=== PATIENT | male | born 1990 | race American Indian/Alaskan Native ===

== ENCOUNTER 2020-11-07 07:52 | Outpatient (REF) | payer MEDICAID, SELFPAY | END 2020-11-07 07:53 | disposition home or self-care (01) | LOC: HO.LAB 07:52 | PROVIDERS: Visit Provider Internal Medicine | DX: Z20.822 Contact with and (suspected) exposure to COVID-19 (principal) | CPT/HCPCS: C9803; U0003; U0005 ==

== ENCOUNTER 2023-07-20 18:03 | Inpatient (IN) | payer OTHER, SELFPAY ==
[2023-07-20 18:13] VITALS: BP 136/106; BP 162/88; PULSE 110; PULSE 127; RESP 20; TEMP 36.9; O2SAT 96; O2SAT 99; BMI 25.1
[2023-07-20 18:19] VITALS: PULSE 95; RESP 16; O2SAT 99
--- NOTE | 2023-07-20 18:21 | PC.NURSE ---
Patient comes to the ED today by ambulance, escorted by PD on a section 12. Patient reports that he jumped off a bridge to go for a swim and someone called police on him. When police arrived apparently one of the officers heard him say that he wants to kill himself, patient denies this at this time. Patient changed over without issue, aware of plan of care at this time
--- NOTE | 2023-07-20 18:39 | ED_ITS ---
HPI - Psych General Chief Complaint: Psychiatric Symptoms Stated Complaint: witnessed jumping off bridge 20 ft into water Time Seen by Provider: 07/20/23 18:17 Source: patient and EMS Mode of arrival: EMS Limitations: no limitations History of Present Illness HPI Narrative: Patient is a 32-year-old male who presents to the emergency department via EMS with police department escorting, patient is on a section 12. Patient was reportedly seen by bystanders to be jumping off the [facility] bridge which is local, an approximate 20 ft jump. Patient reports that he had a rough day, he decided to park his car and jump off the bridge to go for a swim. He reports ?I am kind of a different Gy, when they explained to me afterwards I can see that they would be worried?. His section 12 from PD does state that he told police his ?life sucks? and that he wanted to kill himself. Patient adamantly denies that he did not make this statement, he denies having made any suicidal statements, and denies any suicidal ideations. Nursing staff has advised me that his girlfriend was either present or somehow had reported to EMS/PD that he has a history of self-harm. However, she is adamant that she wants no part of her mentioning this to ever be disclosed to him. When asked he reports that he lives alone and denies having any friend family locally in the area. He denies any drug or alcohol usage. He does report a history of depression as a child, but states he has never had any suicidal attempts, it is not taking any medications for depression. At this time he denies any physical concerns. He states at this time that he would like to be discharged home, he is amenable to staying for a brief time while we ?sort things out?. He reports that he needs to get home within the next couple of hours as he has work early in the morning for [employer] in [place], [place] Related Data Home Medications ?Medication ?Instructions ?Recorded ?Confirmed No Known Home Meds 07/20/23 07/20/23 Allergies Allergy/AdvReac Type Severity Reaction Status Date / Time No Known Allergies Allergy Verified 07/20/23 18:15 Review of Systems 2 Review of Systems: Yes all other systems are reviewed and are negative PMFSH Past Medical History Attestation statement: The following information was validated with the patient. Source: old records reviewed Social History Social History Smoked in Last 30 Days: Yes Substance Use Type: Marijuana Substance Use Frequency: Daily Advance Directives: No Advance Directives Information Provided: No Physical Exam 2 Vital Signs: Vital Signs: Last Vital Signs Temp 98.7 F 07/20/23 23:32 Pulse 93 07/20/23 23:32 Resp 18 07/20/23 23:32 BP 136/89 07/20/23 23:32 Pulse Ox 99 07/20/23 23:32 O2 Del Method Room Air 07/20/23 23:32 BMI result Body Mass Index 25.1 Appearance: Alert.?Oriented to person, place and time. No acute distress.?Normal affect. Eyes: Pupils equal, round and reactive to light.? ENT: Pharynx normal.?? Neck: Normal inspection.? Neck supple.?? CVS: Heart sounds normal. Normal heart rate and rhythm.? Pulses normal.?? Respiratory: No respiratory distress.? Lung sounds clear to auscultation bilaterally?? Abdomen: Soft and non-tender. Normoactive bowel sounds. No pulsatile mass.?? Skin: Skin warm and dry.? Normal skin color.? Normal skin turgor.?? Extremities: No lower extremity edema.? No calf ttp? Neuro: Moves all extremities spontaneously. Sensation intact bilaterally. CN II- XII intact. No focal neuro deficits. Ambulates with normal steady gait. Medications Administered Discontinued Medications Generic Name Dose Route Start Last Admin Trade Name Freq PRN Reason Stop Dose Admin Melatonin 9 mg 07/20/23 23:35 07/20/23 23:42 Melatonin 3 Mg Tablet PO 07/20/23 23:36 9 mg ONCE STA Administration Medical Decision Making Medical Decision Making MDM Narrative: Patient is a 32-year-old male with history of depression as a child presenting to the emergency department on a section 12 via EMS/police Department after having jumped off a bridge. He is adamant that this was not a suicide attempt, he does admit that he was having a bad day, and denies ever having mentioned to police department that he had any suicidal ideations or wanting to kill himself. He is speaking clear full sentences, he is alert and oriented x3. He denies any physical complaints and his physical examination is benign. There are no focal neurological deficits, GCS is 15, unlikely to have ICH, SDH, fracture, no cervical thoracic or lumbar spine tenderness, step-offs, deformities to suggest fracture subluxation, lung sounds are clear bilaterally, no respiratory distress, lower suspicion for pneumothorax, significant pulmonary contusion, pneumothorax, rib fracture, no abdominal or flank tenderness upon palpation, soft and nontender, unlikely to have acute blunt injury. At this time will continue to monitor, no current indication for radiographic imaging. And to obtain basic labs for clearance, toxicology testing, and refer to care team Differential Diagnosis Differential Diagnoses: The differential diagnosis associated with the presentation includes (See narrative above) Admission/Observation Consideration of admission/observation: Escalation of care including admission/observation considered (Referral to care team for further evaluation, determination as to whether inpatient psychiatric services are required at this time) Evaluated by care team, section 12 inpatient bed search Consult Healthcare Provider Management of the patient was discussed with: Behavioral Health Provider (CARE team) Lab Data MDM Lab Attestation statement: I reviewed the patient's lab results. CBC reveals a mild leukocytosis, suspect reactive in nature, no acute infectious symptoms, no anemia. No electrolyte derangement. No BONNIE. Normal transaminases. Urinalysis without evidence of infection. Toxicology positive for marijuana, detectable alcohol level of 203. 07/20/23 18:53 07/20/23 18:53 Labs: Lab Results 07/20/23 07/20/23 Range/Units 18:37 18:53 WBC 12.7 H (4.8-10.8) X10*3/uL RBC 5.14 (4.60-5.80) X10*6/uL Hgb 16.2 (14.0-18.0) g/dl Hct 46.8 (42.0-52.0) % MCV 91.1 (80.0-98.0) fL MCH 31.5 (27.0-33.0) pg MCHC 34.6 (31.0-36.0) g/dl RDW 12.5 (11.0-16.0) % Plt Count 393 (160-400) X10*3/uL MPV 8.7 L (9.4-12.4) fL Immature Gran % (Auto) 0.6 H (0.0-0.4) % Neut % (Auto) 74.4 H (45-73) % Lymph % (Auto) 15.7 L (20-40) % [place] % (Auto) 8.3 (2-11) % Eos % (Auto) 0.1 (0-4) % Baso % (Auto) 0.9 (0-2) % Lymph # (Auto) 2.0 (1.2-4.9) X10*3/uL [place] # (Auto) 1.1 (0.1-1.2) X10*3/uL Eos # (Auto) 0.0 (0.0-0.4) X10*3/uL Baso # (Auto) 0.1 (0.0-0.2) X10*3/uL Abs Immat Gran (auto) 0.07 H (0.00-0.03) X10*3/uL Absolute Neuts (auto) 9.5 H (2.0-8.3) x10*3/uL Absolute Nucleated RBC 0.000 (0.0-0.012) X10*3/uL Nucleated RBC % (auto) 0.0 (0.0-0.2) /100WBC Sodium 142 (135-145) mmol/L Potassium 3.5 (3.3-5.1) mmol/L Chloride 105 (96-108) mmol/L Carbon Dioxide 22 (22-29) mmol/L Anion Gap 19 (12-20) BUN 16 (9-16) mg/dL Creatinine 1.25 (0.5-1.4) mg/dL Estim Creat Clear Calc 86.4 Estimated GFR > 60 Random Glucose 92 (60-115) mg/dL Calcium 9.9 (8.4-10.2) mg/dL Total Bilirubin 1.0 (0.0-1.0) mg/dL AST 26 (5-37) U/L ALT 24 (0-40) U/L Alkaline Phosphatase 77 (39-117) U/L Total Protein 8.7 H (6.5-8.0) g/dL Albumin 5.0 (3.5-5.0) g/dL Urine Color Yellow Urine Appearance Clear Urine pH 7.0 (5.0-9.0) Ur Specific [place] <= 1.005 (1.005-1.025) Urine Protein 100 (2+) H (Neg-Trace) mg/dL Urine Glucose (UA) Negative (Negative) mg/dL Urine Ketones Negative (Negative) mg/dL Urine Blood Small (1+) H (Negative) Urine Nitrite Negative (Negative) Ur Leukocyte Esterase Negative (Negative) Urine RBC 0-2 (0-2) /HPF Urine WBC 0-5 (0-5) /HPF Ur Squamous Epith Cells 0-2 (0-2) /HPF Urine Bacteria None Seen (None Seen) Hyaline Casts 0-2 (0-2) /LPF Urine Opiates Screen Not Detected (Not Detect) Ur Buprenorphine Scrn Not Detected (Not Detect) ng/mL Ur Oxycodone Screen Not Detected (Not Detect) ng/mL Urine Methadone Screen Not Detected (Not Detect) ng/mL Urine Fentanyl Screen Not Detected (Not Detect) Ur Barbiturates Screen Not Detected (Not Detect) Ur Phencyclidine Scrn Not Detected (Not Detect) Ur Amphetamines Screen Not Detected (Not Detect) U Benzodiazepines Scrn Not Detected (Not Detect) Urine Cocaine Screen Not Detected (Not Detect) U Marijuana (THC) Screen POSITIVE H (Not Detect) Ethyl Alcohol 203 mg/dL Independent Historian Clinical information obtained from an independent historian. History obtained from or confirmed by: EMS Discharge Plan Discharge Clinical Impression: Depression, Bipolar disorder Patient Disposition: Still a Patient Prescriptions: No Action No Known Home Meds Interventions: Graham-Suicide Risk Severity Scale Last Done: 07/20/23 18:19 Print Language: Singaporean
[2023-07-20 18:59] LABS: Appearance Urine Clear; Color Urine Yellow; Glucose Urine UA Negative (Negative); Leukocyte Esterase Urine Negative (Negative); Nitrite Urine Negative (Negative); Specific Gravity - Urine <= 1.005 (1.005-1.025); UMIC TRIGGER UACC YES; Urine Blood Small (1+) (Negative); Urine Ketones Negative (Negative); Urine Protein 100 (2+) mg/dL (Neg-Trace)
[2023-07-20 18:59] LABS: MANUAL DIFF FLAG NO
[2023-07-20 19:03] LABS: Basophils Absolute Auto 0.1 X10*3/uL (0.0-0.2); Basophils Percent Auto 0.9 % (0-2); Eosinophils Percent Auto 0.1 % (0-4); Hematocrit 46.8 % (42.0-52.0); Hemoglobin 16.2 g/dl (14.0-18.0); Imm Gran Abs Auto 0.07 X10*3/uL (0.00-0.03); Imm Gran Pct Auto 0.6 % (0.0-0.4); Lymphocytes Percent Auto 15.7 % (20-40); Mean Corpuscular HGB Conc 34.6 g/dl (31.0-36.0); Mean Corpuscular Hemoglobin 31.5 pg (27.0-33.0); Mean Corpuscular Volume 91.1 fL (80.0-98.0); Mean Platelet Volume 8.7 fL (9.4-12.4); Monocytes Absolute Auto 1.1 X10*3/uL (0.1-1.2); Monocytes Percent Auto 8.3 % (2-11); Neutrophils Absolute Auto 9.5 x10*3/uL (2.0-8.3); Neutrophils Percent Auto 74.4 % (45-73); Platelet Count 393 X10*3/uL (160-400); Red Blood Count 5.14 X10*6/uL (4.60-5.80); Red Cell Distribution Width 12.5 % (11.0-16.0); White Blood Count 12.7 X10*3/uL (4.8-10.8)
[2023-07-20 19:16] LABS: Amphetamine Screen Urine Not Detected (Not Detect); Barbiturates, Urine Not Detected (Not Detect); Benzodiazepines Screen Urine Not Detected (Not Detect); Buprenorphine Scr Not Detected (Not Detect); Cannabinoid Screen Urine POSITIVE (Not Detect); Cocaine Screen Urine Not Detected (Not Detect); Fentanyl, urine Not Detected (Not Detect); Methadone Screen, Urine Not Detected (Not Detect); Opiate Screen Urine Not Detected (Not Detect); Oxycodone Screen Urine Not Detected (Not Detect); Phencyclidine Screen Urine Not Detected (Not Detect)
[2023-07-20 19:18] LABS: Bacteria Urine None Seen (None Seen); Hyaline Casts Urine 0-2 /LPF (0-2); RBC Urine 0-2 /HPF (0-2); Squamous Epithelial Cell Urine 0-2 /HPF (0-2); WBC Urine 0-5 /HPF (0-5)
[2023-07-20 19:21] LABS: Alanine Aminotransferase 24 U/L (0-40); Alkaline Phosphatase 77 U/L (39-117); Anion Gap 19 (12-20); Aspartate Amino Transferase 26 U/L (5-37); Blood Urea Nitrogen 16 mg/dL (9-16); Calcium 9.9 mg/dL (8.4-10.2); Carbon Dioxide 22 mmol/L (22-29); Chloride 105 mmol/L (96-108); Creatinine Clr Calc Pharmacy 86.4; Estimated Glomerular Filt Rate > 60; Ethanol 203 mg/dL; Glucose Random 92 mg/dL (60-115); Potassium 3.5 mmol/L (3.3-5.1); Sodium 142 mmol/L (135-145); Total Protein 8.7 g/dL (6.5-8.0)
--- NOTE | 2023-07-20 19:50 | MHC.EDTECH ---
house/car keys given to pts girlfriend.
--- NOTE | 2023-07-20 19:53 | PC.NURSE ---
patient gives instructions to gf? to leaf size picker his vehicle. patient just continues to makes antagonistic statements about judgement of staff as if antagonizing personnel will promote our dc of patient . patients gf to receive patients vehicle keys.
--- NOTE | 2023-07-20 20:01 | PC.NURSE ---
patient frequently going back to phone to make phone calls, not reaching anyone.
--- NOTE | 2023-07-20 20:28 | MHC.CARE ---
CARE team contacted [facility] crisis and co-response, [facility] crisis, [facility] and [facility] crisis teams who report no prior contact with Pt. [facility] [facility] crisis reports they have had prior contact with Pt 2x in 2016, but had minimal information about risk hx. BILINGUAL SPEECH LANGUAGE PATHOLOGIST reports that Pt had an unintentional opioid overdose with no SI on one occasion and on another occasion he had been arrested and made SI statement then denied it and stayed in police custody. Today, [facility] report that officers witnessed Pt jump off the bridge which has a 35-40 foot drop and they reached him as he was coming out of the water saying he wanted to kill himself. Then he said he was just swimming... but he was fully clothed. [facility] also reports that Pt's girlfriend told officers that Pt has a hx of self-harm and SI attempts.
[2023-07-20 23:32] VITALS: BP 136/89; PULSE 93; RESP 18; TEMP 37.1; O2SAT 99
[2023-07-20] MEDS: Melatonin 3 MG TABLET 9 MG PO (23:42)
--- NOTE | 2023-07-21 | ECG_ITS ---
Test Reason : Hypertension Blood Pressure : / mmHG Vent. Rate : 070 BPM Atrial Rate : 070 BPM P-R Int : 144 ms QRS Dur : 112 ms QT Int : 384 ms P-R-T Axes : -10 062 019 degrees QTc Int : 414 ms Normal sinus rhythm Normal ECG No previous ECGs available Referred By: Kandice Ricardo Electronically Signed By:FRIEDA RIVER
--- NOTE | 2023-07-21 07:20 | PC.NURSE ---
PT IS SLEEPING RESP EVEN AND UNLABORED. WILL CONTINUE TO MONITOR.
--- NOTE | 2023-07-21 08:09 | PC.NURSE ---
PT IS IN THE HALLWAY ON THE COMMUNITY PHONE.
[2023-07-21 08:17] VITALS: BP 152/79; PULSE 86; RESP 18; TEMP 36.9; O2SAT 97
--- NOTE | 2023-07-21 09:00 | PC.NURSE ---
PT A/O X 4 NO SOB/MALINA NOTED SPEAKS IN FULL SENTENCES. PT DENIES ANY PAIN/DISC/SI/HI/HALLUCINATION. PT AWARE OF PLAN OF CARE. WILL CONTINUE TO MONITOR.
--- NOTE | 2023-07-21 17:00 | PC.NURSE ---
this RN resumed care of pt at 1500. pt resting comfortably in no apparent distress while watching tv. pt denies SI/HI. denies pain. no sob/wob noted. respirations even and unlabored. plan of care ongoing.
--- NOTE | 2023-07-21 18:02 | PC.NURSE ---
report given to AMBER Tavares on M3 at this time.
--- NOTE | 2023-07-21 18:06 | PC.NURSE ---
pt being transported upstairs w/ security and RN from at this time.
[2023-07-21 18:13] VITALS: BP 172/95; PULSE 76; RESP 16; TEMP 36.8; O2SAT 99
[2023-07-21 19:08] VITALS: BMI 27.8
[2023-07-21 19:20] VITALS: BP 152/79; PULSE 98; O2SAT 99
[2023-07-21 19:25] VITALS: BP 153/90; PULSE 95; RESP 18; TEMP 36.2; O2SAT 100
--- NOTE | 2023-07-21 19:39 | HO.EVEPSY2_ITS ---
Event Note Date of Service: 07/21/23 Psych On-Call Event Note: recieved text from [facility] RN re pts high BP 172/95. pt reporting he feels anxious. RN also sent pictures of bruises on pts face, arms, and hands. Reviewd pt chart. Pt had BAL 230 upon ED admit. Started in CIWA scale and ativan protocol. ativan 1mg now ordered. Hospitlaist consult ordered for BP and bruising. EkG ordered. EKG came back with wide QRS and PVC and acute ND/STEMI. rapid rsponse called. repeat EKG shows normal sinus and pt in no acute distress. Medically cleared by rapid response team; t/c to Dr mcgraw medical claims processor. t/c to unit discussed with RN. Contact hospitalist orthodontic treatment coordinator Luke Ricardo who saw patient and will see tomorrow for BP if remains high Time Spent With Patient Time: Total time managing care of this patient today ____ minutes.
--- NOTE | 2023-07-21 20:11 | PM.EVENT ---
Event Note Date of Service: 07/21/23 Event Note: 7:20 PM - Rapid response was activated for abnormal ECG. Patient denied chest pain, shortness of breath or palpations. Denied any medical hx and takes no meds. VS remarkable for hypertension (152/79). Cardiopulmonary exam is unremarkable. ECG evaluated and noted to be very bad quality and unreadable. Repeated ECG is completely normal. No further testing needed as this point. Time Spent With Patient Time: Total time managing care of this patient today ____ minutes.
[2023-07-21] MEDS: Melatonin 3 MG TABLET 9 MG PO (21:14)
[2023-07-21 21:40] LABS: Glucose, Whole Blood 153 mg/dL (60-115)
[2023-07-21] MEDS: LORazepam 1 MG TABLET PO (22:05)
--- NOTE | 2023-07-21 22:28 | PM.EVENT ---
Event Note Date of Service: 07/21/23 Event Note: Patient is a 32-year-old male with no significant PMH not on home medications who was seen for evaluation leg and arm bruising and hypertension. Patient was admitted to [facility] psychiatry unit after reported SI attempt by jumping off a bridge. Patient states he was attempting to ?go for a swim? and denies SI. Patient denies any acute medical complaints at this time. Denies chest pain/pressure, palpitations. No shortness of breath. Denies fever, chills, nausea, vomiting, abdominal pain. Denies musculoskeletal pain to upper or lower extremities. Physical exam reveals minor bruising and some superficial lacerations to upper and lower extremities. Patient seen to be moving all extremities spontaneously without reduced ROM. Seen ambulating without difficulty or ataxia. No further indication for additional workup or imaging indicated right now for lacerations/bruising. Patient has been noted to be hypertensive up to 172/95. Will continue to monitor patient's BP and start on antihypertensives tomorrow if BP continues to be elevated. Time Spent With Patient Time: Total time managing care of this patient today ____ minutes.
--- NOTE | 2023-07-22 00:19 | PC.ADMIT ---
Patient is a 32 year old male admitted to [facility] on conditional CV from [facility] via EMS for suicidally and alcohol abuse at 1810 .Prior to admission , patient was seen by bystanders attempting to jump off the [place] bridge . Derrell denies that he was making any suicidal gestures , was attempting to go for a swim .BAL of .205 obtained in ER upon arrival .Derrell presents alert/orient in all spheres thought process is intact/coherent /linear , no evidence of overt psychosis No evidence of medical issues demeanor is cooperative during admission processes . Derrell repeated to T/W I'm not suicidal , yes I have stress with my job and I had a beer and 3 nips yesterday I maybe drink 2-3 times a month, Tox. screen obtained in ER was positive for THC Adamantly denies having thoughts to harm self or others he admitted telling police ' my life sucks Reports living alone and having strong family support .Derrell reports no prior psychiatric hospitalization , no prior psychiatric medications or out patient providers .Cooperative with admission process all forms signs treatment plan initiated., contracts for safety .Provider early childhood education specialist Kaleigh Harris notified of admission and orders obtained . Placed on 15 minute safety checks , CIWA q 4 hours
--- NOTE | 2023-07-22 00:53 | PC.NURSE ---
At 19;24 EKG obtained with abnormal results Princess Harris notified Rapid response called . Repeat EKG obtained =NSR ,MJY=198 . VS. 97.1-153/90-95- 18-O2 Sats 100% on R.A.. Patient in no apparent distress , Patient cleared by Hospitalist.
[2023-07-22 07:40] VITALS: BP 136/66; PULSE 83; RESP 16; TEMP 36.6; O2SAT 99
--- NOTE | 2023-07-22 08:52 | HO.PSYADMNOT ---
HPI Date of Service: 07/22/23 Chief Complaint: SI Sources of Information: patient interviewed, chart reviewed and crisis/core team assessment reviewed HPI Subjective Notes: Smart Warning, Conditional Voluntary and 3 Day Narrative: Patient is a 32 year old male with hx of depression and PTSD who was brought into ER d/t jumping [facility] the [facility] while intoxicated. Per crisis report, pt was brought into ER via ambulance on Section 12 by [place] PD d/t [facility]. [place] [facility] Police reported, pt stated he wanted to kill himself and that his life sucks . Pt denied making those statement when he arrived to ER. Pt's BAL was 205. Pt's ex-girlfriend told police pt has a hx of self harm and prior suicide attempts. Ex-girlfriend reported that after an argument with her over seeing someone new during their break up, they found out pt jumped off a bridge . During admission assessment, pt presents alert and oriented, calm and cooperative. Pt reports feeling fine ; pt stated, I jumped off the bridge into the water. I told the police I was swimming and they thought I wanted to kill myself. I didn't know the bridge I jumped off was shallow. I usually jump off the [place] bridge to go swimming . When asked if he has a hx of SA/SIB; pt stated, I only cut when I was 17 but I haven't done anything since then. I don't know why my ex would say that. I guess she thought I was trying to kill myself. I had a long day at work and had some beers. We had an argument because there is a man living with her and she's telling me she loves me . Pt denies any substance use; he reports drinking socially and smoking marijuana. He denies any current outpatient psychiatric providers but is interested in a referral to a therapist. When discussing medications; pt stated, I feel stable and don't feel like I need any medications. I go to work and the gym then go home . Pt reports he sleeps well at night. denies any other impulsive behavior. pt denies SI/HI/VH/AH. Past Psychiatric History: Pt reports hx of cutting at age 17 and taking Prozac for a few months . Pt denies any current outpatient psychiatric providers. Pt reports this is his first inpatient psychiatric hospitalization. 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 Substance History: pt reports drinking socially and smoking marijauna. Trauma History: yes Diagnostics Vital Signs (24Hr): Vital Signs - 24 hr 07/21/23 18:13 07/21/23 19:20 07/21/23 19:25 Temperature 98.3 F 97.1 F Pulse Rate 76 98 95 Respiratory Rate 16 18 Blood Pressure 172/95 H 152/79 H 153/90 H Pulse Oximetry 99 99 100 Oxygen Delivery Method Room Air Room Air Room Air 07/22/23 07:40 Temperature 97.8 F Pulse Rate 83 Respiratory Rate 16 Blood Pressure 136/66 Pulse Oximetry 99 Oxygen Delivery Method Room Air BMI result Body Mass Index 27.8 Labs 07/20/23 18:53 07/20/23 18:53 Labs: Laboratory Results - last 48 hr 07/20/23 07/20/23 07/21/23 18:37 18:53 19:23 WBC 12.7 H RBC 5.14 Hgb 16.2 Hct 46.8 MCV 91.1 MCH 31.5 MCHC 34.6 RDW 12.5 Plt Count 393 MPV 8.7 L Immature Gran % (Auto) 0.6 H Neut % (Auto) 74.4 H Lymph % (Auto) 15.7 L [place] % (Auto) 8.3 Eos % (Auto) 0.1 Baso % (Auto) 0.9 Lymph # (Auto) 2.0 [place] # (Auto) 1.1 Eos # (Auto) 0.0 Baso # (Auto) 0.1 Abs Immat Gran (auto) 0.07 H Absolute Neuts (auto) 9.5 H Absolute Nucleated RBC 0.000 Nucleated RBC % (auto) 0.0 Sodium 142 Potassium 3.5 Chloride 105 Carbon Dioxide 22 Anion Gap 19 BUN 16 Creatinine 1.25 Estim Creat Clear Calc 86.4 Estimated GFR > 60 POC Glucose 153 H Random Glucose 92 Calcium 9.9 Total Bilirubin 1.0 AST 26 ALT 24 Alkaline Phosphatase 77 Total Protein 8.7 H Albumin 5.0 Urine Color Yellow Urine Appearance Clear Urine pH 7.0 Ur Specific [place] <= 1.005 Urine Protein 100 (2+) H Urine Glucose (UA) Negative Urine Ketones Negative Urine Blood Small (1+) H Urine Nitrite Negative Ur Leukocyte Esterase Negative Urine RBC 0-2 Urine WBC 0-5 Ur Squamous Epith Cells 0-2 Urine Bacteria None Seen Hyaline Casts 0-2 Urine Opiates Screen Not Detected Ur Buprenorphine Scrn Not Detected Ur Oxycodone Screen Not Detected Urine Methadone Screen Not Detected Urine Fentanyl Screen Not Detected Ur Barbiturates Screen Not Detected Ur Phencyclidine Scrn Not Detected Ur Amphetamines Screen Not Detected U Benzodiazepines Scrn Not Detected Urine Cocaine Screen Not Detected U Marijuana (THC) Screen POSITIVE H Ethyl Alcohol 203 Meds/Allergies Meds Home Medications ?Medication ?Instructions ?Recorded ?Confirmed ?Type No Known Home Meds 07/20/23 07/20/23 History Allergies Allergies Allergy/AdvReac Type Severity Reaction Status Date / Time No Known Allergies Allergy Verified 07/20/23 18:15 Mental Status Exam Mental Status Exam Narrative: Pt is alert and oriented; behavior is cooperative, friendly and calm; dressed in casual attire; mood is described as good ; eye contact appropriate; Speech is normal rate, volume and prosody and not pressured; thought process is organized and goal directed; Thought content is on discharge; otherwise pertinent to relevant topics and without any delusional content, paranoid ideations or grandiosity; denies SI/HI/VH/AH. Assessment & Plan Assessment & Plan (1) Depression: Status: Acute Code(s): F32.A - Depression, unspecified (2) PTSD (post-traumatic stress disorder): Status: Acute Code(s): F43.10 - Post-traumatic stress disorder, unspecified Plan Patient is a 32 year old male with hx of depression and PTSD who was brought into ER d/t jumping off the [facility] while intoxicated. Plan: / day notice 15 minute safety checks CIWA referral to outpatient therapist obtain collateral discharge planning Patient educated on: diagnosis, medication risk/benefits, substance abuse and therapeutic strategies Informed Consent: understands Reason for continued inpatient stay Substantial Risk for: med/psych decompensation Statement Statement: I have reviewed the history and physical and performed a pertinent examination on my patient. No changes have occurred unless specified. If the History and Physical was not performed prior to admission, the Hospitalist's service will be consulted for completing the admission physical. Time Spent With Patient Time: Total time managing care of this patient today _60___ minutes.
[2023-07-22 09:13] LABS: Cholesterol 184 mg/dL (<200); HDL Cholesterol 41 mg/dL (>40); LDL Cholesterol Calculated 113 mg/dL (<100); Triglycerides 154 mg/dL (<150)
[2023-07-22 09:21] LABS: Estimated Average Glucose 111 mg/dL; Hemoglobin A1c % 5.5 % (<6.0)
[2023-07-22 09:27] LABS: Free T4 (Free Thyroxine) 1.01 ng/dL (0.71-1.85); Thyroid Stimulating Hormone 1.23 uIU/mL (0.32-4.0)
[2023-07-22 10:54] LABS: Folate 9.1 ng/mL (> or = 4.0); Vitamin B12 456 pg/mL (200-900)
[2023-07-22 20:00] VITALS: BP 143/79; PULSE 82; RESP 16; TEMP 37.1; O2SAT 96
[2023-07-22] MEDS: Melatonin 3 MG TABLET 9 MG PO (21:36)
[2023-07-23 07:48] VITALS: BP 150/76; PULSE 70; RESP 16; TEMP 36.4; O2SAT 100
--- NOTE | 2023-07-23 10:03 | HO.PSYCHPN ---
Subjective Subjective Date of Service: 07/23/23 Reason For Visit: SI Interim History: met with patient. Discussed with Nursing. Overall doing much better. No evidence of alcohol withdrawal and did discontinue CIWA. Reports feeling positive. Mood significantly improved. Sleep energy and appetite good. Feels that therapy is what is going to help him most and hopeful this can be in person. Still feels medications are not needed and doing okay without same. Also looking forward to changing his job from the [employer] to something different due to a negative work environment. Side effects from medications: No Attending Groups: Yes Review of Systems Acute medical concerns: No Review of Systems Review of Systems Yes all other systems are reviewed and are negative Mental Status Exam Mental Status Exam Narrative: Pleasant. Engaged. Hospital clothing in good hygiene. Engaging well with in group and milieu. Euthymic. No SI. No HI. No agitation or psychosis. Insight and judgment good Diagnostics Vital Signs (24Hr): Vital Signs - 24 hr 07/22/23 20:00 07/23/23 07:48 Temperature 98.7 F 97.5 F Pulse Rate 82 70 Respiratory Rate 16 16 Blood Pressure 143/79 H 150/76 H Pulse Oximetry 96 100 Oxygen Delivery Method Room Air Room Air BMI result Body Mass Index 27.8 Labs 07/20/23 18:53 07/20/23 18:53 Labs: Laboratory Results - last 48 hr 07/21/23 07/22/23 19:23 08:39 POC Glucose 153 H Estimat Average Glucose 111 Hemoglobin A1c % 5.5 Triglycerides 154 H Cholesterol 184 LDL Cholesterol, Calc 113 H HDL Cholesterol 41 Vitamin B12 456 Folate 9.1 TSH 1.23 Free T4 1.01 Medications Medications Current Medications Acetaminophen (Acetaminophen 325 Mg Tablet) 650 mg PO Q6H PRN PRN Reason: Headache/Pain Mild Scale (1-3) Al Hydroxide/Mg Hydroxide (Magnesium Hydrox/Alum Hydrox 30 Ml Oral.Susp) 30 ml PO Q6H PRN PRN Reason: Heartburn/Nausea Hydroxyzine HCl (Hydroxyzine Hcl 25 Mg Tablet) 25 mg PO Q6H PRN PRN Reason: Anxiety Lorazepam (Lorazepam 1 Mg Tablet) 1 mg PO Q4H PRN PRN Reason: Breakthrough alcohol withdrawa Stop: 07/25/23 18:42 Magnesium Hydroxide (Milk Of Magnesia 30 Ml Oral.Susp) 30 ml PO DAILY PRN PRN Reason: Constipation Melatonin (Melatonin 3 Mg Tablet) 9 mg PO BEDTIME LUIS Last Admin: 07/22/23 21:36 Dose: 9 mg Nicotine Polacrilex (Nicotine Polacrilex 2 Mg Gum) 4 mg BUCCAL Q2H PRN PRN Reason: Nicotine Cravings Trazodone HCl (Trazodone Hcl 50 Mg Tablet) 50 mg PO BEDTIME MRX1 PRN PRN Reason: Insomnia Allergies Allergies Allergy/AdvReac Type Severity Reaction Status Date / Time No Known Allergies Allergy Verified 07/20/23 18:15 Assessment & Plan Assessment & Plan (1) Depression: Status: Acute Code(s): F32.A - Depression, unspecified (2) PTSD (post-traumatic stress disorder): Status: Acute Code(s): F43.10 - Post-traumatic stress disorder, unspecified Plan Patient is a 32 year old male with hx of depression and PTSD who was brought into ER d/t jumping off the [facility] [place] while intoxicated. Plan: day notice 15 minute safety checks CIWA referral to outpatient therapist obtain collateral discharge planning 07/23/2023: No changes. Reason for continued inpatient stay Substantial Risk for: harm to self and other ( Safety evaluation) Time Spent With Patient Time: Total time managing care of this patient today ____ minutes.
[2023-07-23 12:14] VITALS: BP 139/97
[2023-07-23] MEDS: amLODIPine Besylate 5 MG TABLET PO (12:14)
[2023-07-23 20:10] VITALS: BP 134/84; PULSE 61; O2SAT 96
[2023-07-23] MEDS: Melatonin 3 MG TABLET 9 MG PO (20:13)
[2023-07-23] MEDS: traZODone HCL 50 MG TABLET PO (20:31)
[2023-07-24 08:45] VITALS: BP 148/82; PULSE 77; RESP 18; TEMP 37.1; O2SAT 100
[2023-07-24 08:52] VITALS: BP 127/77
[2023-07-24] MEDS: amLODIPine Besylate 5 MG TABLET PO (08:52)
--- NOTE | 2023-07-24 10:37 | P.PNPSI_ITS ---
Subjective Subjective Date of Service: 07/24/23 Reason For Visit: SI Interim History: Met with patient. Discussed with Nursing. Continues to do well. Met with father today- supportive and as per pt he is also supporting pt discharging. Remains positive. Sleep energy and appetite good. Feels that therapy is what is going to help him most and hopeful this can be in person. Still feels medications are not needed and doing okay without same. Also looking forward to changing his job from the [employer] to something different due to a negative work environment. Attending Groups: Yes Review of Systems Acute medical concerns: No Review of Systems Review of Systems Yes all other systems are reviewed and are negative Constitutional: Reports as per HPI Eyes: Reports as per HPI Reports as per HPI Cardiovascular: Reports as per HPI Respiratory: Reports as per HPI Gastrointestinal: Reports as per HPI Genitourinary: Reports as per HPI Musculoskeletal: Reports as per HPI Skin/Breast: Reports as per HPI Reports as per HPI Psychiatric: Reports as per HPI Endocrine: Reports as per HPI Hematologic/Lymphatic: Reports as per HPI Allergic/Immunologic: Reports as per HPI Mental Status Exam Mental Status Exam Narrative: Pleasant. Engaged. Hospital clothing in good hygiene. Engaging well with in group and milieu. Euthymic. No SI. No HI. No agitation or psychosis. Insight and judgment good Diagnostics Vital Signs (24Hr): Vital Signs - 24 hr 07/23/23 12:14 07/23/23 20:10 07/24/23 08:45 Temperature 98.8 F Pulse Rate 61 77 Respiratory Rate 18 Blood Pressure 139/97 H 134/84 148/82 H Pulse Oximetry 96 100 Oxygen Delivery Method Room Air Room Air 07/24/23 08:52 Temperature Pulse Rate Respiratory Rate Blood Pressure 127/77 Pulse Oximetry Oxygen Delivery Method BMI result Body Mass Index 27.8 Labs 07/20/23 18:53 07/20/23 18:53 Labs: Laboratory Results - last 48 hr 07/22/23 08:39 Vitamin B12 456 Folate 9.1 Medications Medications Current Medications Acetaminophen (Acetaminophen 325 Mg Tablet) 650 mg PO Q6H PRN PRN Reason: Headache/Pain Mild Scale (1-3) Al Hydroxide/Mg Hydroxide (Magnesium Hydrox/Alum Hydrox 30 Ml Oral.Susp) 30 ml PO Q6H PRN PRN Reason: Heartburn/Nausea Amlodipine Besylate (Amlodipine Besylate 5 Mg Tablet) 5 mg PO DAILY LUIS; Protocol Last Admin: 07/24/23 08:52 Dose: 5 mg Hydroxyzine HCl (Hydroxyzine Hcl 25 Mg Tablet) 25 mg PO Q6H PRN PRN Reason: Anxiety Magnesium Hydroxide (Milk Of Magnesia 30 Ml Oral.Susp) 30 ml PO DAILY PRN PRN Reason: Constipation Melatonin (Melatonin 3 Mg Tablet) 9 mg PO BEDTIME LUIS Last Admin: 07/23/23 20:13 Dose: 9 mg Nicotine Polacrilex (Nicotine Polacrilex 2 Mg Gum) 4 mg BUCCAL Q2H PRN PRN Reason: Nicotine Cravings Trazodone HCl (Trazodone Hcl 50 Mg Tablet) 50 mg PO BEDTIME MRX1 PRN PRN Reason: Insomnia Last Admin: 07/23/23 20:31 Dose: 50 mg Allergies Allergies Allergy/AdvReac Type Severity Reaction Status Date / Time No Known Allergies Allergy Verified 07/20/23 18:15 Assessment & Plan Assessment & Plan (1) Depression: Status: Acute Code(s): F32.A - Depression, unspecified (2) PTSD (post-traumatic stress disorder): Status: Acute Code(s): F43.10 - Post-traumatic stress disorder, unspecified Plan Patient is a 32 year old male with hx of depression and PTSD who was brought into ER d/t jumping off the [facility] [place] while intoxicated. Plan: day notice 15 minute safety checks CIWA referral to outpatient therapist obtain collateral discharge planning 07/23/2023: No changes. 07/23: no changes. doing well Reason for continued inpatient stay Substantial Risk for: rapid decompensation Time Spent With Patient Time: Total time managing care of this patient today ____ minutes.
[2023-07-24 19:20] VITALS: BP 143/90; PULSE 68; RESP 16; TEMP 37; O2SAT 99
[2023-07-24] MEDS: Melatonin 3 MG TABLET 9 MG PO (20:44)
[2023-07-24] MEDS: traZODone HCL 50 MG TABLET PO (20:45)
[2023-07-25 07:57] VITALS: BP 133/84; PULSE 63; RESP 14; TEMP 36.4; O2SAT 99
[2023-07-25 08:39] VITALS: BP 133/84; PULSE 116; RESP 18; O2SAT 98
[2023-07-25 08:41] VITALS: BP 133/84
[2023-07-25] MEDS: amLODIPine Besylate 5 MG TABLET PO (08:41)
--- NOTE | 2023-07-25 09:14 | PM.EVENT ---
Event Note Date of Service: 07/25/23 Event Note: Blood pressure control greatly improved. Continue current regimen. Thank you for allowing me to participate in this consult. Signing off at this time. Please do not hesitate to call for further questions or for any acute medical issues Time Spent With Patient Time: Total time managing care of this patient today ____ minutes.
--- NOTE | 2023-07-25 09:55 | P.PNPSI_ITS ---
Subjective Subjective Date of Service: 07/25/23 Reason For Visit: SI Subjective Notes: 3 Day Interim History: Reviewed with Dr. Hinojosa. Social with peers, attending groups. pt reports feeling good ; looking forward to attending outpatient therapy. Pt reports he feels he has a good support system outside of here . pt denies SI/HI/VH/AH. 3 day notice is up 07/27/2023; plan to discharge home tomorrow. pt continues to report he is not interested in taking anything for depression or anxiety . Medication Compliance: Yes Side effects from medications: No Attending Groups: Yes Review of Systems Constitutional: Reports as per HPI Eyes: Reports as per HPI Reports as per HPI Cardiovascular: Reports as per HPI Respiratory: Reports as per HPI Gastrointestinal: Reports as per HPI Genitourinary: Reports as per HPI Musculoskeletal: Reports as per HPI Skin/Breast: Reports as per HPI Reports as per HPI Psychiatric: Reports as per HPI Endocrine: Reports as per HPI Hematologic/Lymphatic: Reports as per HPI Allergic/Immunologic: Reports as per HPI Mental Status Exam Mental Status Exam Narrative: Pt is alert and oriented; behavior is cooperative, friendly and calm; dressed in casual attire; mood is described as good ; eye contact appropriate; Speech is normal rate, volume and prosody and not pressured; thought process is organized and goal directed; Thought content is on tx; denies SI/HI/VH/AH. Diagnostics Vital Signs (24Hr): Vital Signs - 24 hr 07/24/23 19:20 07/25/23 07:57 07/25/23 08:39 Temperature 98.6 F 97.6 F Pulse Rate 68 63 116 H Respiratory Rate 16 14 18 Blood Pressure 143/90 H 133/84 133/84 Pulse Oximetry 99 99 98 Oxygen Delivery Method Room Air Room Air Room Air 07/25/23 08:41 Temperature Pulse Rate Respiratory Rate Blood Pressure 133/84 Pulse Oximetry Oxygen Delivery Method BMI result Body Mass Index 27.8 Labs 07/20/23 18:53 07/20/23 18:53 Medications Medications Current Medications Acetaminophen (Acetaminophen 325 Mg Tablet) 650 mg PO Q6H PRN PRN Reason: Headache/Pain Mild Scale (1-3) Al Hydroxide/Mg Hydroxide (Magnesium Hydrox/Alum Hydrox 30 Ml Oral.Susp) 30 ml PO Q6H PRN PRN Reason: Heartburn/Nausea Amlodipine Besylate (Amlodipine Besylate 5 Mg Tablet) 5 mg PO DAILY LUIS; Protocol Last Admin: 07/25/23 08:41 Dose: 5 mg Hydroxyzine HCl (Hydroxyzine Hcl 25 Mg Tablet) 25 mg PO Q6H PRN PRN Reason: Anxiety Magnesium Hydroxide (Milk Of Magnesia 30 Ml Oral.Susp) 30 ml PO DAILY PRN PRN Reason: Constipation Melatonin (Melatonin 3 Mg Tablet) 9 mg PO BEDTIME LUIS Last Admin: 07/24/23 20:44 Dose: 9 mg Nicotine Polacrilex (Nicotine Polacrilex 2 Mg Gum) 4 mg BUCCAL Q2H PRN PRN Reason: Nicotine Cravings Trazodone HCl (Trazodone Hcl 50 Mg Tablet) 50 mg PO BEDTIME MRX1 PRN PRN Reason: Insomnia Last Admin: 07/24/23 20:45 Dose: 50 mg Allergies Allergies Allergy/AdvReac Type Severity Reaction Status Date / Time No Known Allergies Allergy Verified 07/20/23 18:15 Assessment & Plan Assessment & Plan (1) Depression: Status: Acute Code(s): F32.A - Depression, unspecified (2) PTSD (post-traumatic stress disorder): Status: Acute Code(s): F43.10 - Post-traumatic stress disorder, unspecified Plan Patient is a 32 year old male with hx of depression and PTSD who was brought into ER d/t jumping off the [facility] [place] while intoxicated. Plan: / day notice 15 minute safety checks CIWA referral to outpatient therapist obtain collateral discharge planning 07/23/2023: No changes. 07/23: no changes. doing well 07/24: Social with peers, attending groups. pt reports feeling good ; looking forward to attending outpatient therapy. Pt reports he feels he has a good support system outside of here . pt denies SI/HI/VH/AH. 3 day notice is up 07/27/2023; plan to discharge home tomorrow. pt continues to report he is not interested in taking anything for depression or anxiety . Patient educated on: diagnosis, medication risk/benefits, substance abuse and therapeutic strategies Informed Consent: understands Reason for continued inpatient stay Substantial Risk for: stable for discharge Time Spent With Patient Time: Total time managing care of this patient today _20___ minutes.
[2023-07-25 19:40] VITALS: BP 133/87; PULSE 84; RESP 18; TEMP 36.9; O2SAT 98
[2023-07-25] MEDS: traZODone HCL 50 MG TABLET PO (21:43)
[2023-07-25] MEDS: Melatonin 3 MG TABLET 9 MG PO (21:43)
[2023-07-26 07:41] VITALS: BP 133/62; PULSE 63; RESP 14; TEMP 35.9; O2SAT 99
[2023-07-26 09:01] VITALS: BP 133/62
[2023-07-26] MEDS: amLODIPine Besylate 5 MG TABLET PO (09:01)
--- NOTE | 2023-09-13 14:18 | PM.PSYDC ---
DS: Providers Provider Date of Service: 07/26/23 Date of admission: 07/21/23 17:54 Date of discharge: 07/26/23 Primary care physician: None Physician Admitting clinician: Karena Rodriguez Consults: 07/21/23 18:40 Consult to Hospitalist Stat Comment: Consulting Provider: Hospitalist Reason For Exam: multiple bruises on arms face, hands, high blood p Attending physician on discharge: Nemesio Hinojosa DS: Diagnosis Discharge Diagnosis (1) Depression: Status: Acute (2) PTSD (post-traumatic stress disorder): Status: Acute DS: Medications Discharge Medications Home Medications: Previous Rx's ?Medication ?Instructions ?Recorded amlodipine 5 mg tablet 5 mg PO DAILY 30 days #30 tabs 07/25/23 Mental Status Exam Mental Status Exam Narrative: Pt is alert and oriented; behavior is cooperative, friendly and calm; dressed in casual attire; mood is described as good full affect noted ; eye contact appropriate; Speech is normal rate, volume and prosody and not pressured; thought process is organized and goal directed; Thought content is on discharge hopeful denies SI/HI/VH/AH. DS: Summary Hospital Course Hospital Course: Psychiatry Admission Note (In) Signed Patient: Derrell Bolden MR#: [id number] : 1990 Acct:[id number] Age/Sex: 32 / M Loc: [id number]: Nemesio Hinojosa MD cc: Nemesio Hinojosa MD; Karena Rodriguez [employer] SPECIALIST~ HPI Date of Service: 07/22/23 Chief Complaint: SI Sources of Information: patient interviewed, chart reviewed and crisis/core team assessment reviewed HPI Subjective Notes: Smart Warning, Conditional Voluntary and 3 Day Narrative: Patient is a 32 year old male with hx of depression and PTSD who was brought into ER d/t jumping off the [facility] while intoxicated. Per crisis report, pt was brought [place] ER [place] ambulance [address] Ellen WILBURN d/t jumping off the [facility]. [place] police [place] the [place]. Police reported, pt stated he wanted to kill himself and that his life sucks . Pt denied making those statement when he arrived to ER. Pt's BAL was 205. Pt's ex-girlfriend told police pt has a hx of self harm and prior suicide attempts. Ex-girlfriend reported that after an argument with her over seeing someone new during their break up, they found out pt jumped off a bridge . During admission assessment, pt presents alert and oriented, calm and cooperative. Pt reports feeling fine ; pt stated, I jumped off the bridge into the water. I told the police I was swimming and they thought I wanted to kill myself. I didn't know the bridge I jumped off was shallow. I usually jump off the [place] to go swimming . When asked if he has a hx of SA/SIB; pt stated, I only cut when I was 17 but I haven't done anything since then. I don't know why my ex would say that. I guess she thought I was trying to kill myself. I had a long day at work and had some beers. We had an argument because there is a man living with her and she's telling me she loves me . Pt denies any substance use; he reports drinking socially and smoking marijuana. He denies any current outpatient psychiatric providers but is interested in a referral to a therapist. When discussing medications; pt stated, I feel stable and don't feel like I need any medications. I go to work and the gym then go home . Pt reports he sleeps well at night. denies any other impulsive behavior. pt denies SI/HI/VH/AH. Past Psychiatric History: Pt reports hx of cutting at age 17 and taking Prozac for a few months . Pt denies any current outpatient psychiatric providers. Pt reports this is his first inpatient psychiatric hospitalization. 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 Substance History: pt reports drinking socially and smoking marijauna. Trauma History: yes Diagnostics Vital Signs (24Hr): Vital Signs - 24 hr 07/21/23 18:13 07/21/23 19:20 07/21/23 19:25 Temperature 98.3 F 97.1 F Pulse Rate 76 98 95 Respiratory Rate 16 18 Blood Pressure 172/95 H 152/79 H 153/90 H Pulse Oximetry 99 99 100 Oxygen Delivery Method Room Air Room Air Room Air 07/22/23 07:40 Temperature 97.8 F Pulse Rate 83 Respiratory Rate 16 Blood Pressure 136/66 Pulse Oximetry 99 Oxygen Delivery Method Room Air BMI result Body Mass Index 27.8 Labs 07/20/23 18:53 document embedded image 07/20/23 18:53 document embedded image Labs: Laboratory Results - last 48 hr 07/20/23 07/20/23 07/21/23 18:37 18:53 19:23 WBC 12.7 H RBC 5.14 Hgb 16.2 Hct 46.8 MCV 91.1 MCH 31.5 MCHC 34.6 RDW 12.5 Plt Count 393 MPV 8.7 L Immature Gran % (Auto) 0.6 H Neut % (Auto) 74.4 H Lymph % (Auto) 15.7 L [place] % (Auto) 8.3 Eos % (Auto) 0.1 Baso % (Auto) 0.9 Lymph # (Auto) 2.0 [place] # (Auto) 1.1 Eos # (Auto) 0.0 Baso # (Auto) 0.1 Abs Immat Gran (auto) 0.07 H Absolute Neuts (auto) 9.5 H Absolute Nucleated RBC 0.000 Nucleated RBC % (auto) 0.0 Sodium 142 Potassium 3.5 Chloride 105 Carbon Dioxide 22 Anion Gap 19 BUN 16 Creatinine 1.25 Estim Creat Clear Calc 86.4 Estimated GFR > 60 POC Glucose 153 H Random Glucose 92 Calcium 9.9 Total Bilirubin 1.0 AST 26 ALT 24 Alkaline Phosphatase 77 Total Protein 8.7 H Albumin 5.0 Urine Color Yellow Urine Appearance Clear Urine pH 7.0 Ur Specific [place] <= 1.005 Urine Protein 100 (2+) H Urine Glucose (UA) Negative Urine Ketones Negative Urine Blood Small (1+) H Urine Nitrite Negative Ur Leukocyte Esterase Negative Urine RBC 0-2 Urine WBC 0-5 Ur Squamous Epith Cells 0-2 Urine Bacteria None Seen Hyaline Casts 0-2 Urine Opiates Screen Not Detected Ur Buprenorphine Scrn Not Detected Ur Oxycodone Screen Not Detected Urine Methadone Screen Not Detected Urine Fentanyl Screen Not Detected Ur Barbiturates Screen Not Detected Ur Phencyclidine Scrn Not Detected Ur Amphetamines Screen Not Detected U Benzodiazepines Scrn Not Detected Urine Cocaine Screen Not Detected U Marijuana (THC) Screen POSITIVE H Ethyl Alcohol 203 Meds/Allergies Meds Home Medications Medication Instructions Recorded Confirmed Type No Known Home Meds 07/20/23 07/20/23 History Allergies Allergies Allergy/AdvReac Type Severity Reaction Status Date / Time No Known Allergies Allergy Verified 07/20/23 18:15 Mental Status Exam Mental Status Exam Narrative: Pt is alert and oriented; behavior is cooperative, friendly and calm; dressed in casual attire; mood is described as good ; eye contact appropriate; Speech is normal rate, volume and prosody and not pressured; thought process is organized and goal directed; Thought content is on discharge; otherwise pertinent to relevant topics and without any delusional content, paranoid ideations or grandiosity; denies SI/HI/VH/AH. Assessment & Plan Assessment & Plan (1) Depression: Status: Acute Code(s): F32.A - Depression, unspecified (2) PTSD (post-traumatic stress disorder): Status: Acute Code(s): F43.10 - Post-traumatic stress disorder, unspecified Plan Patient is a 32 year old male with hx of depression and PTSD who was brought into ER d/t jumping off the [facility] while intoxicated. Plan: CV/3 day notice 15 minute safety checks CIWA referral to outpatient therapist obtain collateral discharge planning Patient educated on: diagnosis, medication risk/benefits, substance abuse and therapeutic strategies Informed Consent: understands Reason for continued inpatient stay Substantial Risk for: med/psych decompensation Hospital course The patient was admitted on conditional voluntary impulsively [place] bridge [place] the water when intoxicated in the context feeling upset over his life circumstances. Patient reportedly has a history of rejection sensitivity and apparently felt distraught after finding out that his ex-girlfriend was living someone else. Patient was calm cooperative while on the psychiatric unit attended groups and was agreeable to outpatient psychotherapy. His father was supportive the patient was not amenable to considering antidepressant treatment and denied any current active thoughts of suicide and denied that his ultimate intention was to kill himself. He was calm cooperative not overly depressed on the unit somewhat guarded future oriented and was agreeable to referral for counseling plan to call 911 or go to nearest emergency room if feeling unsafe patient stated that he did have good support system outpatient strongly urged to maintain sobriety encourage coping strategies to deal with emotional states. Patient was discharged home 3 day notice no evidence of active dangerousness during hospitalization and agreeable to outpatient treatment Time Spent with Patient Time attestation: Total time managing care of this patient today ____ minutes. Discharge Plan Discharge Anticipated Discharge Date/Time: 07/26/23 11:00 Patient Disposition: Home, Self-Care Discharge Diagnosis: Depression, PTSD Referrals: [facility]- María Morales (Therapy) [Other] - 08/02/23 4:00 pm (Please arrive 15 min prior to the intake appointment to complete intake paperwork. ) [facility] [Provider Group] - 1 Week Discharge Medications: New amlodipine 5 mg Tablet 5 mg PO DAILY 30 Days Qty: 30 0RF Protocol: Hold for SBP< HOLD for SBP < : 90 Discharge Orders: Discharge Order (Routine); Ordered 07/26/23 Ordered By: Karena Rodriguez Diet: Regular diet Activity on Discharge: As tolerated Stand Alone Forms: Patient Portal Discharge page, Community Support Print Language: German Care Plan Goals: Maintain mood and safe behaviors Take medications as prescribed Continue to pursue sobriety Practice coping skills Continue with outpatient providers and reach out to them as needed Health Concerns: Mood stability and behaviors Sobriety Plan of Treatment: Follow up with your PCP, psychiatric provider and other outpatient providers regarding above concerns Take medications as prescribed Assessment: Patient was interviewed prior to discharge and found to be fully oriented and without SI or HI. Patient has insight and demonstrates good judgment in terms of wanting to pursue treatment. Patient has a safety plan that includes presenting to the closest ER or calling 911 if feeling unsafe. Discharge Date/Time: 07/26/23 10:26
== END 2023-07-26 10:26 | disposition home or self-care (01) | DRG 754 ==
LOC: HO.ED 07-21 01:24 → HO.PADLT16 07-21 17:55
PROVIDERS: Admitting Provider Psychiatry & Neurology Psychiatry; Emergency Provider Emergency Medicine; Responsible Provider Registered Nurse; Visit Provider Psychiatry & Neurology Psychiatry
DX: F32.A Depression, unspecified (principal); R45.851 Suicidal ideations; F43.10 Post-traumatic stress disorder, unspecified; I10 Essential (primary) hypertension; Y90.7 Blood alcohol level of 200-239 mg/100 ml; Z79.899 Other long term (current) drug therapy
CPT/HCPCS: 36415; 80053; 80061; 80307; 81001; 81003; 82607; 82746; 82947; 83036; 84439; 84443; 85025; 93005; 99284; S9485

== ENCOUNTER 2023-07-21 17:54 | Outpatient (BNV) | payer OTHER, SELFPAY | END 2023-07-21 19:16 | PROVIDERS: Admitting Provider Psychiatry & Neurology Psychiatry; Emergency Provider Emergency Medicine; Responsible Provider Registered Nurse; Visit Provider Internal Medicine | DX: I10 Essential (primary) hypertension (principal) | CPT/HCPCS: 93010 ==

== ENCOUNTER → 2023-07-21 17:54 | Outpatient (BNV) | payer OTHER, SELFPAY | PROVIDERS: Admitting Provider Psychiatry & Neurology Psychiatry; Emergency Provider Emergency Medicine; Visit Provider Clinical Nurse Specialist Psychiatric/Mental Health | DX: F33.2 Major depressive disorder, recurrent severe without psychotic features (principal); F43.11 Post-traumatic stress disorder, acute; F10.90 Alcohol use, unspecified, uncomplicated | CPT/HCPCS: 99231; 99233; 99358 ==

== ENCOUNTER → 2023-07-21 17:54 | Outpatient (BNV) | payer OTHER, SELFPAY | PROVIDERS: Admitting Provider Psychiatry & Neurology Psychiatry; Emergency Provider Emergency Medicine; Responsible Provider Registered Nurse; Visit Provider Psychiatry & Neurology Psychiatry | DX: F33.2 Major depressive disorder, recurrent severe without psychotic features (principal); F43.11 Post-traumatic stress disorder, acute | CPT/HCPCS: 99231 ==